=== PATIENT | female | born 1985 | race Caucasian/White ===

== ENCOUNTER 2016-03-29 23:08 | Inpatient (IN) | payer MEDICAID ==
[~2016-03-29] VITALS: Ht 149.9 cm; Wt 65.3 kg
[~2016-03-29 23:08] MED LIST: ACET325T82 PO; DIVA500T53 PO; GABA-339 PO; GABA-494 PO; LORA-655 PO; MULTCAP45 PO; NICO14DI TD; QUET100T38 PO; QUET200T3 PO; QUET400T PO; TRAM50TA2 PO
[2016-03-30] MEDS ORDERED: CLINDAMYCIN 600MG IV 50 ML IV ONE (10:45)
[2016-03-30] MEDS ORDERED: PIPERACILLIN-TAZOB 3.375GM 100 ML IV ONE (10:45)
[2016-03-30] MEDS ORDERED: SODIUM CHLORIDE 0.9% 1,000 ML IV ONE (10:45)
[2016-03-30] MEDS ORDERED: SODIUM CHLORIDE 0.9% 250 ML IV ONE (10:45)
[2016-03-30 11:35] LABS: Basophils # (auto) 0 uL; Basophils % (auto) 0.6 % (0.0-2.0); Eosinophils # (auto) 0.1 uL; Eosinophils % (auto) 2.3 % (0.0-7.0); Hematocrit 37.1 % (36.0-46.0); Hemoglobin 12.4 g/dL (12.2-16.2); Lymphocytes # (auto) 1.6 uL; Lymphocytes % (auto) 31.4 % (10.0-50.0); Mean Corpuscular Hemoglobin 30.2 pg (28.0-32.0); Mean Corpuscular Hgb Conc. 33.3 g/dL (32.0-36.0); Mean Corpuscular Volume 90.6 fL (80.0-100.0); Mean Platelet Volume 7.7 fL (7.4-10.4); Monocytes # (auto) 0.4 uL; Neutrophils # (auto) 2.9 uL; Neutrophils % (auto) 56.7 % (37.0-80.0); Platelet Count (auto) 261 10^3/uL (140-450); Red Cell Distribution Width 13.5 % (11.6-16.0)
[2016-03-30 11:56] LABS: Albumin 3.4 g/dL (3.4-5.0); Alkaline Phosphatase 91 U/L (45-117); Anion Gap 8 (5-15); Aspartate Aminotransferase 112 U/L (15-37); BUN/Creatinine Ratio 23.7; Bilirubin, Total 0.2 mg/dL (0.2-1.0); Blood Urea Nitrogen 14 mg/dL (7-18); Calcium 8.4 mg/dL (8.5-10.1); Carbon Dioxide 26 mmol/L (21-32); Chloride 102 mmol/L (98-107); GFR African American 155 mL/min; GFR Non-African American 128 mL/min; Glucose 120 mg/dL (74-106); Potassium 3.8 mmol/L (3.5-5.1); Sodium 136 mmol/L (136-145); Total Protein 7.3 g/dL (6.4-8.2)
[2016-03-30 11:57] LABS: REFLEX LACTIC ACID YES OR NO YES
[2016-03-30 12:55] LABS: INR 1.13 (0.9-1.15); Partial Thromboplastin Time 26.5 sec (22.64-33.71); Prothrombin Time 11.6 sec (9.37-12.3)
[2016-03-30] MEDS ORDERED: KETOROLAC TROMETH 30 MG/ML 1ML VIAL IV ONE (13:30)
[2016-03-30] MEDS ORDERED: DOCUSATE SOD 100 MG CAP PO PRN (17:00)
[2016-03-30] MEDS ORDERED: ACETAMINOPHEN 325 MG TAB PO PRN (17:00)
[2016-03-30] MEDS ORDERED: HYDROcodone-ACET 5/325MG TAB PO PRN (17:00)
[2016-03-30] MEDS ORDERED: TEMAZEPAM 15 MG CAP PO PRN (17:00)
[2016-03-30] MEDS ORDERED: ONDANSETRON HCL 4 MG/2 ML VIAL IV PRN (17:00)
[2016-03-30] MEDS ORDERED: cefTRIAXone 1GM/50ML D5W 50 ML IV ONE (17:15)
[2016-03-30] MEDS ORDERED: ZINC SULFATE 220 MG CAP PO ONE (17:30)
[2016-03-30] MEDS ORDERED: MULTIPLE VITAMIN TAB PO ONE (17:30)
[2016-03-30] MEDS: MORPHINE SULF INJ 2 MG/ML SYRINGE 1ML IV PRN ×2 (17:54→20:55)
[2016-03-30] MEDS: CLINDAMYCIN 300MG IV 50 ML IV SCH (20:55)
[2016-03-30] MEDS: SODIUM CHLOR 0.9% PF (SALINE LOCK) 10ML VIAL IV SCH (20:56)
[2016-03-30] MEDS: ASCORBIC ACID 500 MG TAB PO SCH (20:56)
[2016-03-30] MEDS: risperiDONE 1 MG TAB PO SCH (20:56)
[2016-03-30 21:44] VITALS: BP 110/67
[2016-03-31] MEDS: MORPHINE SULF INJ 2 MG/ML SYRINGE 1ML IV PRN ×5 (03:31→21:45)
[2016-03-31 04:55] VITALS: BP 96/43
[2016-03-31] MEDS: CLINDAMYCIN 300MG IV 50 ML IV SCH ×3 (05:21→20:38)
[2016-03-31] MEDS: SODIUM CHLOR 0.9% PF (SALINE LOCK) 10ML VIAL IV SCH ×3 (05:21→20:38)
[2016-03-31 05:34] LABS: Basophils # (auto) 0 uL; Basophils % (auto) 0.5 % (0.0-2.0); Eosinophils # (auto) 0.1 uL; Eosinophils % (auto) 2.6 % (0.0-7.0); Hematocrit 33.8 % (36.0-46.0); Hemoglobin 11.3 g/dL (12.2-16.2); Lymphocytes # (auto) 2.2 uL; Lymphocytes % (auto) 50.5 % (10.0-50.0); Mean Corpuscular Hgb Conc. 33.4 g/dL (32.0-36.0); Monocytes # (auto) 0.4 uL; Monocytes % (auto) 9.1 % (0.0-12.0); Neutrophils # (auto) 1.6 uL; Neutrophils % (auto) 37.3 % (37.0-80.0); Platelet Count (auto) 239 10^3/uL (140-450); White Blood Cell 4.3 10^3/uL (4.4-10.8)
[2016-03-31 06:06] LABS: Albumin 2.9 g/dL (3.4-5.0); BUN/Creatinine Ratio 21.4; Bilirubin, Total 0.3 mg/dL (0.2-1.0); Calcium 8.3 mg/dL (8.5-10.1); Potassium 4.3 mmol/L (3.5-5.1); Total Protein 6.5 g/dL (6.4-8.2)
[2016-03-31 07:00] VITALS: BP 101/63
[2016-03-31 08:00] VITALS: BP 130/77
[2016-03-31] MEDS: cefTRIAXone 1GM/50ML D5W 50 ML IV SCH (08:59)
[2016-03-31] MEDS: risperiDONE 1 MG TAB PO SCH ×2 (09:00→20:36)
[2016-03-31] MEDS: ZINC SULFATE 220 MG CAP PO SCH (09:00)
[2016-03-31] MEDS: MULTIPLE VITAMIN TAB PO SCH (09:00)
[2016-03-31] MEDS: ASCORBIC ACID 500 MG TAB PO SCH ×2 (09:00→20:36)
[2016-03-31 12:00] VITALS: BP 107/68
[2016-03-31 16:57] VITALS: BP 115/65
[2016-03-31 20:00] VITALS: BP 134/88
[2016-03-31] MEDS ORDERED: diphenhdrAMINE HCL 25 MG CAP PO ONE (23:15)
[2016-04-01 06:00] VITALS: BP 129/53
[2016-04-01] MEDS: CLINDAMYCIN 300MG IV 50 ML IV SCH ×3 (06:01→21:56)
[2016-04-01] MEDS: SODIUM CHLOR 0.9% PF (SALINE LOCK) 10ML VIAL IV SCH ×3 (06:02→21:57)
[2016-04-01] MEDS: MORPHINE SULF INJ 2 MG/ML SYRINGE 1ML IV PRN ×4 (06:03→21:57)
[2016-04-01 08:00] VITALS: BP 118/66
[2016-04-01] MEDS: risperiDONE 1 MG TAB PO SCH ×2 (11:48→21:56)
[2016-04-01] MEDS: ZINC SULFATE 220 MG CAP PO SCH (11:48)
[2016-04-01] MEDS: MULTIPLE VITAMIN TAB PO SCH (11:49)
[2016-04-01] MEDS: ASCORBIC ACID 500 MG TAB PO SCH ×2 (11:49→21:57)
[2016-04-01] MEDS: cefTRIAXone 1GM/50ML D5W 50 ML IV SCH (11:54)
[2016-04-01 13:00] VITALS: BP 120/75
[2016-04-01 15:11] LABS: Urine Bilirubin Negative (Negative); Urine Blood Negative /uL (Negative); Urine Color Yellow (Yellow); Urine Glucose Normal (Normal); Urine Ketone Negative (Negative); Urine Nitrite Negative (Negative); Urine RBC <1 /hpf (0 - 4); Urine Squamous Epithelial Cell MOD /hpf (<5); Urine Urobilinogen Normal (Negative)
[2016-04-01 16:47] VITALS: BP 123/76
[2016-04-01] MEDS: NICOTINE 14 MG/24HR TOPICAL PATCH TD SCH (20:45)
[2016-04-01 22:00] VITALS: BP 117/77
[2016-04-02 05:26] VITALS: BP 106/57
[2016-04-02] MEDS: SODIUM CHLOR 0.9% PF (SALINE LOCK) 10ML VIAL IV SCH ×3 (06:06→21:53)
[2016-04-02] MEDS: CLINDAMYCIN 300MG IV 50 ML IV SCH ×3 (06:06→21:53)
[2016-04-02 07:48] VITALS: BP 137/69
[2016-04-02 08:00] VITALS: BP 137/69
[2016-04-02] MEDS: cefTRIAXone 1GM/50ML D5W 50 ML IV SCH (08:42)
[2016-04-02] MEDS: MULTIPLE VITAMIN TAB PO SCH (08:44)
[2016-04-02] MEDS: ASCORBIC ACID 500 MG TAB PO SCH ×2 (08:44→21:52)
[2016-04-02] MEDS: ZINC SULFATE 220 MG CAP PO SCH (08:44)
[2016-04-02] MEDS: MORPHINE SULF INJ 2 MG/ML SYRINGE 1ML IV PRN ×3 (09:31→21:53)
[2016-04-02] MEDS: risperiDONE 1 MG TAB PO SCH ×2 (09:31→21:52)
[2016-04-02] MEDS: NICOTINE 14 MG/24HR TOPICAL PATCH TD SCH (09:36)
[2016-04-02] MEDS ORDERED: PERMETHRIN 5 % TOPICAL CREAM 60GM TOP ONE ×2 (10:45→11:00)
[2016-04-02 11:58] VITALS: BP 114/70
[2016-04-02 16:49] VITALS: BP 106/67
[2016-04-02 22:00] VITALS: BP 105/53
[2016-04-03 05:30] VITALS: BP 95/46
[2016-04-03] MEDS: CLINDAMYCIN 300MG IV 50 ML IV SCH (06:07)
[2016-04-03] MEDS: SODIUM CHLOR 0.9% PF (SALINE LOCK) 10ML VIAL IV SCH (06:07)
[2016-04-03] MEDS: MORPHINE SULF INJ 2 MG/ML SYRINGE 1ML IV PRN (06:56)
[2016-04-03 08:00] VITALS: BP 95/48
[2016-04-03 09:18] VITALS: BP 108/70
[2016-04-03] MEDS: ASCORBIC ACID 500 MG TAB PO SCH (09:32)
[2016-04-03] MEDS: risperiDONE 1 MG TAB PO SCH (09:32)
[2016-04-03] MEDS: ZINC SULFATE 220 MG CAP PO SCH (09:32)
[2016-04-03] MEDS: MULTIPLE VITAMIN TAB PO SCH (09:32)
[2016-04-03] MEDS: cefTRIAXone 1GM/50ML D5W 50 ML IV SCH (09:33)
[2016-04-03] MEDS: NICOTINE 14 MG/24HR TOPICAL PATCH TD SCH (09:33)
[2016-04-03] MEDS ORDERED: PERMETHRIN 5 % TOPICAL CREAM 60GM TOP ONE (12:00)
[2016-04-03 12:37] VITALS: BP 95/48
[2016-04-03 13:00] VITALS: BP 115/71
== END 2016-04-03 15:45 | disposition home or self-care (01) | DRG 383 ==
LOC: ER 23:17 → EDUNIT# 23:18 → OVERFLOW 23:18 → ER 03-30 07:34 → EAST 03-30 18:08
PROVIDERS: ADMIT Internal Medicine; ATTEND Internal Medicine Pulmonary Disease
DX: L03.313 Cellulitis of chest wall (principal); E83.51 Hypocalcemia; F20.9 Schizophrenia, unspecified; F31.9 Bipolar disorder, unspecified; F17.210 Nicotine dependence, cigarettes, uncomplicated; Z59.0 Homelessness; Z98.890 Other specified postprocedural states
CPT/HCPCS: 36415; 71250; 80053; 81001; 81025; 83605; 84484; 85025; 85610; 85730; 87040; 87081; 87086; 87205; 93306; 96365; 96366; 96367; 96368; 96375; G0434; J0696; J1885; J2405; J2543; J3490

== ENCOUNTER 2016-06-03 00:23 | Emergency (ER) | payer MEDICAID ==
[~2016-06-03] VITALS: Ht 149.9 cm; Wt 59.0 kg
[2016-06-03 00:41] VITALS: BP 136/85
== END 2016-06-03 01:16 | disposition left against medical advice (07) ==
LOC: EDBD 00:23 → ER 00:26
DX: R10.9 Unspecified abdominal pain (principal); Z53.21 Procedure and treatment not carried out due to patient leaving prior to being seen by health care provider

== ENCOUNTER 2016-06-12 17:08 | Emergency (ER) | payer MEDICAID ==
[~2016-06-12] VITALS: Ht 162.6 cm; Wt 72.6 kg
[2016-06-12 21:43] LABS: Basophils # (auto) 0 uL; Basophils % (auto) 0.6 % (0.0-2.0); Eosinophils # (auto) 0.1 uL; Eosinophils % (auto) 1.9 % (0.0-7.0); Hemoglobin 12.8 g/dL (12.2-16.2); Lymphocytes # (auto) 2.3 uL; Lymphocytes % (auto) 39.9 % (10.0-50.0); Mean Corpuscular Hemoglobin 28.8 pg (28.0-32.0); Mean Corpuscular Volume 90.3 fL (80.0-100.0); Mean Platelet Volume 8.5 fL (7.4-10.4); Monocytes # (auto) 0.6 uL; Monocytes % (auto) 10.5 % (0.0-12.0); Neutrophils # (auto) 2.7 uL; Neutrophils % (auto) 47.1 % (37.0-80.0); Platelet Count (auto) 289 10^3/uL (140-450); Red Cell Distribution Width 14.1 % (11.6-16.0); White Blood Cell 5.7 10^3/uL (4.4-10.8)
[2016-06-12 21:53] LABS: Albumin 3.3 g/dL (3.4-5.0); Anion Gap 9 (5-15); Aspartate Aminotransferase 56 U/L (15-37); BUN/Creatinine Ratio 16.9; Blood Urea Nitrogen 12 mg/dL (7-18); Calcium 8.3 mg/dL (8.5-10.1); Carbon Dioxide 26 mmol/L (21-32); Chloride 106 mmol/L (98-107); GFR African American 125 mL/min; GFR Non-African American 103 mL/min; Glucose 91 mg/dL (74-106); Potassium 3.6 mmol/L (3.5-5.1); Sodium 141 mmol/L (136-145)
[2016-06-12 21:56] LABS: Alkaline Phosphatase 139 U/L (45-117); Bilirubin, Total 0.2 mg/dL (0.2-1.0)
[2016-06-13 04:30] VITALS: BP 106/78
== END 2016-06-13 08:26 | disposition home or self-care (01) ==
LOC: EDBD 17:08 → EDSEX 17:08 → ER 17:08
DX: R45.851 Suicidal ideations (principal); F20.9 Schizophrenia, unspecified; F15.10 Other stimulant abuse, uncomplicated; F11.10 Opioid abuse, uncomplicated; F12.10 Cannabis abuse, uncomplicated; F17.210 Nicotine dependence, cigarettes, uncomplicated; F31.9 Bipolar disorder, unspecified; Z59.0 Homelessness
CPT/HCPCS: 36415; 80053; 80307; 80320; 85025; 94761

== ENCOUNTER 2017-10-04 04:16 | Emergency (ER) | payer MEDICAID ==
[~2017-10-04] VITALS: Ht 157.5 cm; Wt 72.6 kg
[~2017-10-04 04:16] MED LIST changes: -GABA-494 PO; +GABA100C9 PO
[2017-10-04 07:03] LABS: Alcohol, Urine < 3.0 mg/dL (0-5); Amphetamine Screen, Urine POSITIVE (NEGATIVE); Barbiturate Scree,Urine NEGATIVE (NEGATIVE); Benzodiazephine Screen, Urine NEGATIVE (NEGATIVE); Cannabinoid Screen, Urine POSITIVE (NEGATIVE); Cocaine Screen, Urine NEGATIVE (NEGATIVE); Opiate Scree,Urine POSITIVE (NEGATIVE); Phencyclidine Screen, Urine NEGATIVE (NEGATIVE)
[2017-10-04 07:35] LABS: Urine Amorphous Crystal MANY /hpf (None Seen); Urine Bacteria MANY /hpf (None Seen); Urine Blood TRACE /uL (Negative); Urine Budding Yeast FEW /hpf (None Seen); Urine Hyaline Cast MANY /lpf (0 - 2); Urine Mucus FEW (None Seen); Urine Specific Gravity 1.017 (1.001-1.035); Urine WBC 142 /hpf (0 - 5); Urine WBC Clumps PRESENT /hpf (None Seen)
[2017-10-04 07:51] LABS: Basophils # (auto) 0 uL; Basophils % (auto) 0.4 % (0.0-2.0); Eosinophils # (auto) 0 uL; Eosinophils % (auto) 0.1 % (0.0-7.0); Hematocrit 35.1 % (36.0-46.0); Lymphocytes # (auto) 1.4 uL; Lymphocytes % (auto) 21.6 % (10.0-50.0); Mean Corpuscular Hemoglobin 29.9 pg (28.0-32.0); Mean Corpuscular Hgb Conc. 34.3 g/dL (32.0-36.0); Mean Corpuscular Volume 87.3 fL (80.0-100.0); Monocytes # (auto) 0.5 uL; Monocytes % (auto) 7.6 % (0.0-12.0); Neutrophils # (auto) 4.5 uL; Neutrophils % (auto) 70.3 % (37.0-80.0); Nucleated Red Blood Cells % 0.2 %; Platelet Count (auto) 288 10^3/uL (140-450); Red Blood Cells 4.02 10^6/uL (4.0-5.20); Red Cell Distribution Width 12.8 % (11.8-14.3); White Blood Cell 6.3 10^3/uL (4.4-10.8)
[2017-10-04 07:55] LABS: INR 1.06 (0.9-1.15); Partial Thromboplastin Time 29.9 sec (23.78-33.04); Prothrombin Time 11.3 sec (9.27-12.13)
[2017-10-04] MEDS ORDERED: TETANUS-DIPTH-ACEL PERTUSSIS 0.5ML SYRG IM ONE (08:15)
[2017-10-04] MEDS ORDERED: cefTRIAXone 1GM/10ml IVPUSH 10 ML IV ONE (08:15)
[2017-10-04 08:24] LABS: Alanine Aminotransferase 68 U/L (13-56); Albumin 3.3 g/dL (3.4-5.0); Alkaline Phosphatase 104 U/L (45-117); Anion Gap 9 (5-15); Aspartate Aminotransferase 70 U/L (15-37); BUN/Creatinine Ratio 12.8; Bilirubin, Total 0.4 mg/dL (0.2-1.0); Blood Urea Nitrogen 10 mg/dL (7-18); Calcium 9.3 mg/dL (8.5-10.1); Carbon Dioxide 30 mmol/L (21-32); Chloride 97 mmol/L (98-107); GFR African American 112 mL/min; GFR Non-African American 92 mL/min; Glucose 99 mg/dL (74-106); Lipase 186 U/L (73-393); Magnesium 2.6 mg/dL (1.6-2.6); Sodium 136 mmol/L (136-145); Total Protein 8.1 g/dL (6.4-8.2)
[2017-10-04 08:35] LABS: Potassium 2.9 mmol/L (3.5-5.1)
[2017-10-04] MEDS ORDERED: POTASSIUM EFFERVESENT TAB 25 MEQ PO ONE (08:45)
[2017-10-04 08:49] VITALS: BP 128/86
== END 2017-10-04 15:02 | disposition left against medical advice (07) ==
LOC: EDBD 04:16 → ER 04:16
DX: S50.852A Superficial foreign body of left forearm, initial encounter (principal); N39.0 Urinary tract infection, site not specified; E87.6 Hypokalemia; L30.9 Dermatitis, unspecified; F19.20 Other psychoactive substance dependence, uncomplicated; F15.10 Other stimulant abuse, uncomplicated; F12.10 Cannabis abuse, uncomplicated; F17.210 Nicotine dependence, cigarettes, uncomplicated; E46 Unspecified protein-calorie malnutrition; Z68.29 Body mass index [BMI] 29.0-29.9, adult; Z86.19 Personal history of other infectious and parasitic diseases; Z53.29 Procedure and treatment not carried out because of patient's decision for other reasons; Z59.0 Homelessness; Z79.899 Other long term (current) drug therapy; X58.XXXA Exposure to other specified factors, initial encounter; Y93.89 Activity, other specified; Y99.8 Other external cause status; Y92.89 Other specified places as the place of occurrence of the external cause
CPT/HCPCS: 36415; 71046; 73090; 74176; 80053; 80307; 81001; 83690; 83735; 84484; 84702; 85025; 85610; 85730; 90471; 90715; 93005; 96374; 99285; J0696

== ENCOUNTER 2017-10-04 11:32 | Emergency (ER) | payer MEDICAID ==
[~2017-10-04] VITALS: Ht 152.4 cm; Wt 59.0 kg
[2017-10-04] MEDS ORDERED: SODIUM CHLORIDE 0.9% 1,000 ML IVB ONE (15:42)
[2017-10-04] MEDS ORDERED: PROMETHAZINE HCL 25 MG/ML 1ML IV PRN (15:45)
[2017-10-04] MEDS ORDERED: POTASSIUM EFFERVESENT TAB 25 MEQ PO ONE (16:30)
[2017-10-04 16:50] VITALS: BP 123/51
== END 2017-10-04 17:16 | disposition home or self-care (01) ==
LOC: ER 11:32
DX: S40.852A Superficial foreign body of left upper arm, initial encounter (principal); S40.851A Superficial foreign body of right upper arm, initial encounter; N39.0 Urinary tract infection, site not specified; L30.8 Other specified dermatitis; F11.20 Opioid dependence, uncomplicated; F17.210 Nicotine dependence, cigarettes, uncomplicated; Z59.0 Homelessness; Z79.899 Other long term (current) drug therapy; X58.XXXA Exposure to other specified factors, initial encounter; Y93.89 Activity, other specified; Y99.8 Other external cause status; Y92.89 Other specified places as the place of occurrence of the external cause
CPT/HCPCS: 93005

== ENCOUNTER 2017-10-09 10:18 | Emergency (ER) | payer MEDICAID ==
[~2017-10-09] VITALS: Ht 152.4 cm; Wt 47.6 kg
[2017-10-09 10:29] VITALS: BP 117/87
== END 2017-10-09 11:01 | disposition home or self-care (01) ==
LOC: ER 10:18
DX: L30.9 Dermatitis, unspecified (principal); F17.210 Nicotine dependence, cigarettes, uncomplicated; F12.10 Cannabis abuse, uncomplicated; F15.10 Other stimulant abuse, uncomplicated; F11.10 Opioid abuse, uncomplicated; Z76.0 Encounter for issue of repeat prescription

== ENCOUNTER 2018-03-11 09:07 | Emergency (ER) | payer MEDICAID ==
[~2018-03-11] VITALS: Ht 149.9 cm; Wt 55.8 kg
[~2018-03-11 09:07] MED LIST changes: +AMOX200S35 PO; +DOXY100C2 PO; +RISP2TAB62 PO
[2018-03-11 10:11] VITALS: BP 124/70
[2018-03-11 10:12] LABS: Urine Bacteria FEW /hpf (None Seen); Urine Blood Negative /uL (Negative); Urine Hyaline Cast FEW /lpf (0 - 2); Urine Mucus FEW (None Seen); Urine Specific Gravity 1.026 (1.001-1.035); Urine WBC 68 /hpf (0 - 5)
== END 2018-03-11 11:16 | disposition home or self-care (01) ==
LOC: ER 09:07
DX: N39.0 Urinary tract infection, site not specified (principal); F17.210 Nicotine dependence, cigarettes, uncomplicated; F12.90 Cannabis use, unspecified, uncomplicated; F15.90 Other stimulant use, unspecified, uncomplicated; Z59.0 Homelessness; Z79.899 Other long term (current) drug therapy
CPT/HCPCS: 81001; 81025

== ENCOUNTER 2018-06-15 15:54 | Emergency (ER) | payer MEDICAID ==
[~2018-06-15] VITALS: Ht 149.9 cm; Wt 54.4 kg
[2018-06-15 16:22] VITALS: BP 94/59
[2018-06-15 16:53] LABS: Urine Bacteria MOD /hpf (None Seen); Urine Blood Negative /uL (Negative); Urine Hyaline Cast FEW /lpf (0 - 2); Urine Mucus FEW (None Seen); Urine Specific Gravity 1.016 (1.001-1.035); Urine WBC 107 /hpf (0 - 5)
== END 2018-06-15 20:21 | disposition home or self-care (01) ==
LOC: ER 16:02
DX: O23.41 Unspecified infection of urinary tract in pregnancy, first trimester (principal); O99.331 Smoking (tobacco) complicating pregnancy, first trimester; O99.321 Drug use complicating pregnancy, first trimester; F12.10 Cannabis abuse, uncomplicated; F15.10 Other stimulant abuse, uncomplicated; F11.10 Opioid abuse, uncomplicated; F17.210 Nicotine dependence, cigarettes, uncomplicated; Z3A.10 10 weeks gestation of pregnancy; Z59.0 Homelessness; Z79.899 Other long term (current) drug therapy
CPT/HCPCS: 81001; 81025

== ENCOUNTER 2018-06-22 06:07 | Emergency (ER) | payer MEDICAID ==
[~2018-06-22] VITALS: Ht 165.1 cm; Wt 59.0 kg
[2018-06-22 06:10] VITALS: BP 122/85
== END 2018-06-22 08:15 | disposition left against medical advice (07) ==
LOC: EDBD 06:07 → ER 06:07
DX: O20.8 Other hemorrhage in early pregnancy (principal); O99.321 Drug use complicating pregnancy, first trimester; F15.10 Other stimulant abuse, uncomplicated; F12.10 Cannabis abuse, uncomplicated; Z3A.10 10 weeks gestation of pregnancy

== ENCOUNTER 2021-02-24 13:49 | Emergency (ER) | payer MEDICAID ==
[~2021-02-24] VITALS: Ht 149.9 cm; Wt 63.5 kg
[~2021-02-24 13:49] MED LIST changes: +DIVA500T2 PO; -DIVA500T53 PO; -QUET200T3 PO; +QUET200T4 PO
[2021-02-24 13:54] VITALS: BP 121/88
== END 2021-02-24 14:43 | disposition left against medical advice (07) ==
LOC: ER 13:49
DX: Z48.01 Encounter for change or removal of surgical wound dressing (principal); Z53.21 Procedure and treatment not carried out due to patient leaving prior to being seen by health care provider